=== PATIENT | male | born 1990 | race Caucasian/White ===

== ENCOUNTER 2016-10-30 14:55 | Emergency (ER) ==
[2016-10-30 15:03] VITALS: BP 120/73
== END 2016-10-30 16:17 | disposition left against medical advice (07) ==
LOC: ER 14:55
DX: Z53.21 Procedure and treatment not carried out due to patient leaving prior to being seen by health care provider (principal)

== ENCOUNTER 2016-10-31 11:03 | Emergency (ER) | payer OTHER ==
[2016-10-31 11:11] VITALS: BP 123/66
[2016-10-31] MEDS ORDERED: AZITHROMYCIN 1 GM SUSP PACKET PO ONE (11:34)
[2016-10-31] MEDS ORDERED: CEFTRIAXONE INJ 250 MG VIAL IM ONE (11:34)
--- NOTE | 2016-10-31 11:35 | ER Document Report ---
HPI - HPI Pain Level: Denies Context: Patient is a 26-year-old male comes the ED with concern of exposure to chlamydia. Patient states that his girlfriend was treated for chlamydia last week here in the ED. Patient states that he has not noticed any burning with urination or any discharge. He is still eating and drink without any problems. Denies any fever, URI, sore throat, chest pain, palpitations, shortness of breath, cough, syncope, abdominal pain, nausea, vomiting, diarrhea, hematuria, pyuria, swollen lymph nodes, joint pain, skin ulcerations or lesions. - DERM Skin Color: Normal Past Medical History - Social History Smoking Status: Never Smoker Family History: Reviewed & Not Pertinent Patient has suicidal ideation: No Patient has homicidal ideation: No Renal/ Medical History: Denies: Hx Peritoneal Dialysis Vertical Provider Document - CONSTITUTIONAL Notes: PHYSICAL EXAMINATION: GENERAL: Well-appearing, well-nourished and in no acute distress. HEAD: Atraumatic, normocephalic. EYES: Pupils equal round and reactive to light, extraocular movements intact, sclera anicteric, conjunctiva are normal. ENT: EAC clear b/l. TM's intact b/l without erythema, fluid, or perforation. Nares patent and without discharge. oropharynx clear without exudates. No tonsilar hypertrophy or erythema. Moist mucous membranes. No sinus tenderness. NECK: Normal range of motion, supple without lymphadenopathy LUNGS: Breath sounds clear to auscultation bilaterally and equal. No wheezes rales or rhonchi. HEART: Regular rate and rhythm without murmurs, rubs, gallops. ABDOMEN: Soft, nontender, nondistended abdomen. No guarding, no rebound. No masses appreciated. Normal bowel sounds present. No CVA tenderness bilaterally. Musculoskeletal: FROM to passive/active. Strength 5+/5. : No erythema, lesions, ulcerations, or swelling noted. + circumcised, without any expressable discharge. Testicles without any tenderness, lumps. No inguinal adenopathy b/l. Extremities: No CCE b/l NEUROLOGICAL: Cranial nerves grossly intact. Normal speech, normal gait. Normal sensory, motor exams PSYCH: Normal mood, normal affect. SKIN: Warm, Dry, normal turgor, no rashes or lesions noted. - INFECTION CONTROL TRAVEL OUTSIDE OF THE [place] IN LAST 30 DAYS: No - RESPIRATORY O2 Sat by Pulse Oximetry: 98 Course - Re-evaluation Re-evalutation: Patient is an afebrile, well-hydrated, 26yo male who presents with exposure to chlamydia. Vitals stable. PE unremarkable. Pt currently asymptomatic. Urine GC/Chlam collected today. I will treat him with zithromax 1g PO now and Rocephin 250mg IM now. Pt to refrain from sexual activity for at least 7 days. Directions given and reviewed for the [facility] and that he should go there to get complete testing performed. Return to the ED with any development of fever or worsening symptoms otherwise. Pt in agreement with plan. F/u with PCM in 2-3 days for recheck. 10/31/16 11:36 10/31/16 11:39 - Vital Signs Vital signs: Temp Pulse Resp BP Pulse Ox 98.2 F 65 16 123/66 98 10/31/16 11:07 10/31/16 11:07 10/31/16 11:07 10/31/16 11:07 10/31/16 11:07 Discharge - Discharge Clinical Impression: Exposure to chlamydia Condition: Stable Disposition: HOME, SELF-CARE Additional Instructions: Chlamydia You have been exposed to a chlamydia infection. Chlamydia is a germ that grows inside the cells of the mucous membranes. It often infects the eyes, urethra, and fallopian tubes. It can cause chronic pain and scar tissue if untreated. Antibiotics are used to treat chlamydia. It's important to take all the medicine even if there are no symptoms. Use condoms to prevent spread of the infection. Because this infection can spread by sexual contact, it's important that your sexual partner be checked before resuming sexual relations. A positive test for chlamydia has to be reported to the health department. Call the doctor or return at once if you develop increasing fever, rash, severe pelvic pain, Urethral discharge, or problems with your bladder or bowels. Return to the ED with any development of fever or worsening symptoms otherwise. F/u with the Health department in 2-3 days for complete STD testing. F/u with your PCM in 2-3 days for a recheck. Referrals: [facility] [NO LOCAL MD] - Follow up as needed
[2016-10-31 14:04] LABS: CHLAM PCR DETECTED (NOT DETECT)
== END 2016-10-31 12:05 | disposition home or self-care (01) ==
LOC: ER 11:03
DX: Z20.2 Contact with and (suspected) exposure to infections with a predominantly sexual mode of transmission (principal)
CPT/HCPCS: 99283; 96372; 87491; 87591; Q0144; J0696